=== PATIENT | male | born 1990 | race Caucasian/White ===

== ENCOUNTER 2018-06-26 20:15 | Emergency (ER) | payer SELFPAY ==
[2018-06-26 20:16] VITALS: BP 152/83; PULSE 82; RESP 16; TEMP 35.7; O2SAT 100; BMI 32.8
[2018-06-26 20:39] VITALS: BP 149/99; PULSE 85; RESP 18; O2SAT 98
--- NOTE | 2018-06-26 20:56 | CT_ITS ---
STUDY: CT BRAIN WITHOUT CONTRAST REASON FOR EXAM: Male, 28 years old. Headache and vertigo RADIATION DOSAGE (If Supplied By Facility): CTDIvol = ( 44.99 ) mGy, DLP = ( 812.98 ) mGycm TECHNIQUE: Transaxial CT imaging of the brain was performed without administration of intravenous contrast material. Individualized dose optimization techniques were used for this CT. COMPARISON: None. FINDINGS: Normal soft tissue structures. Normal calvarium. Normal size ventricles and extra-axial spaces for the patient's age. Normal white matter tracts of the cerebral hemispheres. Normal basal ganglia and thalami. Normal brainstem. Normal cerebellum. There is no intracranial hemorrhage. There are no findings of an acute ischemic infarction. Mucosal thickening in left maxillary sinus CT/Brain/Head without Contrast IMPRESSION: Normal unenhanced CT scan of the brain. Left maxillary sinusitis Electronically Signed: Parth Barragan MD at 21:45 EST , Service support ,
--- NOTE | 2018-06-26 20:56 | ED.RN ---
RN CALLED FOR EKG, NO OLD EKGS IN MUSE
[2018-06-26] MEDS: Acetaminophen 500 MG Tablet 1000 MG PO (21:03)
--- NOTE | 2018-06-26 21:33 | EKG12_ITS ---
Test Reason : NEAR SYNCOPE Blood Pressure : / mmHG Vent. Rate : 084 BPM Atrial Rate : 084 BPM P-R Int : 150 ms QRS Dur : 098 ms QT Int : 392 ms P-R-T Axes : 039 032 044 degrees QTc Int : 463 ms Normal sinus rhythm Normal ECG Confirmed by NIA OWEN, TYSON ([id number]), acquisition editor LIZZY BARRIENTOS ([id number] on 06/29/2018 9:07:40 AM Referred By: MI Confirmed By:TYSON KRAMER MD
--- NOTE | 2018-06-26 22:19 | ED.VISSUMM ---
- ER Visit Summary Date of Service: 06/26/18 Chief Complaint: Headache History of Present Illness: The patient is a 28 M presenting for evaluation secondary to headache. Patient reports that he has been up on labor and delivery with his is she is laboring their fourth child. He reports that he was down in the cafeteria and he had a relatively sudden onset of a bitemporal headache. States that this made him feel as if he was almost going to pass out. Patient endorses some nausea with it but denies any visual changes numbness or weakness. Denies any recent head injuries. Denies any fevers neck stiffness or skin rashes. He denies any personal or family history of aneurysm. He does not really have a history of having headaches in the past. Review of systems otherwise negative. Physical Examination: Vital signs: Within normal limits General: Well-nourished well-developed no acute distress Head: Normocephalic atraumatic, no temporal artery tenderness or vesicular rash noted. No sinus tenderness to percussion. Eyes: PERRLA, EOMI. Direct funduscopy shows no evidence of hemorrhage or papilledema. Neck: Supple, no lymphadenopathy, no JVD no meningismus. Negative Brudzinski, Kernig, jolt, and heel strike Cardiovascular: Heart regular rate and rhythm no murmurs Respiratory: Lung sounds clear to auscultation bilaterally no respiratory distress Abdomen: Soft, nontender Extremities: Nontender, no edema Skin: Normal color, no rash, no evidence of petechia Neuro: Alert and oriented ?4, cranial nerves II through XII intact, normal strength, sensation Test Results: CT brain negative Emergency Department Course and Treatment: Patient presented for evaluation secondary to headache. Given the relatively sudden onset of this, the fact that he does not have a history of headaches, and the fact that he felt as if he was going to potentially pass out a CT brain was obtained. This was obtained within approximately an hour and a half of the patient's onset of symptoms, so a negative CT carries a very high sensitivity and I do not believe that further imaging or lumbar puncture indicated to rule out subarachnoid hemorrhage. Patient was treated with Tylenol and had significant symptom attic improvement. I believe he can safely be discharged. He will follow-up with primary care Disposition: Discharge Impression: 1. Unspecified cephalgia This note was generated with [employer] dictation software. It may contain incorrect words, spelling, and punctuation that were not noted in review of the chart prior to signing ED Disposition - Plan for ED Patient: Disposition: Home or Assisted Living Chief Complaint: Headache Diagnosis: Headache Instructions: ED Headache Tension Referrals: [facility],Out of [Primary Care Provider] -
[2018-06-26 22:27] VITALS: BP 147/92; PULSE 67; RESP 18; O2SAT 97
--- NOTE | 2018-06-26 22:28 | ED.RN ---
pt given written and verbal discharge instructions. pt educated to monitor bp daily until follow up with pcp. pt to return to er for any new or worsened sx. pt verbalizes understanding and denies any further questions. pt dresses self and ambulates out of dept by self.
--- OUTSIDE RECORDS SUMMARY | 2018-08-13 00:32 | XMS RPT_ITS ---
:1990 Author Organization OH[facility] Care Team Providers Name Role Phone ZOILA SANTILLAN (PAC) Attending Unavailable MIRYAM GÓMEZ (PA) Referring Unavailable Steven Hernández Attending Unavailable AMANUEL MARTÍNEZ Primary Care Unavailable PROBLEMS PROBLEMS DATE TYPE CONDITION / CODE ATTENDING STATUS SOURCE 05/08/2018 Active Synovitis and NA Active [facility] tenosynovitis, Other Olivia unspecified / Repository M65.9(ICD-10) PROCEDURES PROCEDURES No Procedure Records FoundRESULTS RESULTS 12 LEAD ELECTROCARDIOGRAM Observed: 06/29/2018 Status: F Source: [place] 9:08 AM [facility] REPOSITORY [facility] Cardiovascular Services [address] [place] [address] 12 Lead EKG 06/26/182051 MR#: [id number] Acct: [id number] Name: ROXANA VIRGEN Rep #: [id number] : 1990 28 From: Rhys Richardson MD Attending Dr: Status: DEP ER Ordering Dr: Steven Hernández MD Date: 06/26/18 Location: ED Sex: M C Admitted: Test Reason : NEAR SYNCOPE Blood Pressure : / mmHG Vent. Rate : 084 BPM Atrial Rate : 084 BPM P-R Int : 150 ms QRS Dur : 098 ms QT Int : 392 ms P-R-T Axes : 039 032 044 degrees QTc Int : 463 ms Normal sinus rhythm Normal ECG Confirmed by RHYS RICHARDSON MD ([id number]), image editor LIZZY BARRIENTOS ([id number]) on 06/29/2018 9:07:40 AM Referred By: MI Confirmed By:RHYS RICHARDSON MD 06/29/18 09 Date Rhys Richardson MD CC: Steven Hernández; OUT OF TOWN DOCTOR Signed EMERGENCY DEPARTMENT Observed: 06/27/2018 Status: F Source: [place] SUMMARY 12:35 AM [facility] [place] REPOSITORY [facility] Medical Records Department [address] [place] [address] Emergency Department Summary 06/26/18 2219 MR#: [id number] Acct: [id number] Name: ROXANA VIRGEN Rep #: [id number] : 1990 28 From: Steven Hernández MD PCP: OUT OF TOWN DOCTOR Status: DEP ER - ER Visit Summary Date of Service: 06/26/18 Chief Complaint: Headache History of Present Illness: The patient is a 28 M presenting for evaluation secondary to headache. Patient reports that he has been up on labor and delivery with his is she is laboring their fourth child. He reports that he was down in the cafeteria and he had a relatively sudden onset of a bitemporal headache. States that this made him feel as if he was almost going to pass out. Patient endorses some nausea with it but denies any visual changes numbness or weakness. Denies any recent head injuries. Denies any fevers neck stiffness or skin rashes. He denies any personal or family history of aneurysm. He does not really have a history of having headaches in the past. Review of systems otherwise negative. Physical Examination: Vital signs: Within normal limits General: Well-nourished well-developed no acute distress Head: Normocephalic atraumatic, no temporal artery tenderness or vesicular rash noted. No sinus tenderness to percussion. Eyes: PERRLA, EOMI. Direct funduscopy shows no evidence of hemorrhage or papilledema. Neck: Supple, no lymphadenopathy, no JVD no meningismus. Negative Brudzinski, Kernig, jolt, and heel strike Cardiovascular: Heart regular rate and rhythm no murmurs Respiratory: Lung sounds clear to auscultation bilaterally no respiratory distress Abdomen: Soft, nontender Extremities: Nontender, no edema Skin: Normal color, no rash, no evidence of petechia Neuro: Alert and oriented 4, cranial nerves II through XII intact, normal strength, sensation Test Results: CT brain negative Emergency Department Course and Treatment: Patient presented for evaluation secondary to headache. Given the relatively sudden onset of this, the fact that he does not have a history of headaches, and the fact that he felt as if he was going to potentially pass out a CT brain was obtained. This was obtained within approximately an hour and a half of the patient's onset of symptoms, so a negative CT carries a very high sensitivity and I do not believe that further imaging or lumbar puncture indicated to rule out subarachnoid hemorrhage. Patient was treated with Tylenol and had significant symptom attic improvement. I believe he can safely be discharged. He will follow-up with primary care Disposition: Discharge Impression: 1. Unspecified cephalgia This note was generated with Intelligent InSites dictation software. It may contain incorrect words, spelling, and punctuation that were not noted in review of the chart prior to signing ED Disposition - Plan for ED Patient: Disposition: Home or Assisted Living Chief Complaint: Headache Diagnosis: Headache Instructions: ED Headache Tension Referrals: [facility] Doctor,Out of [Primary Care Provider] - What to do if you have Problems For any increased pain, shortness of breath, bleeding, nausea or vomiting, chest pain, or any unexpected problems, contact your Primary Care Provider. Call [facility] ([phone]) or report to the closest Emergency Room. Call 911 if necessary. 06/27/18 0035 <Electronically signed by Steven Hernández MD> Date Steven Hernández MD Cosigner Signature (If Indicated): Date CC: OUT OF TOWN DOCTOR BRAIN/HEAD WITHOUT Observed: 06/26/2018 Status: F Source: [place] 8:57 PM [facility] REPOSITORY [facility] Imaging Services [facility] [place] [address] Brain/Head without Contrast MR#: [id number] Acct: [id number] Name: ROXANA VIRGEN Rep #: [id number] : 1990 M 28 From: Parth Barragan MD PCP: OUT OF TOWN DOCTOR Status: REG ER Study: Brain/Head without Contrast Date of Exam: 06/26/18 Exam# [id number] Ordering Dr: Steven Hernández MD STUDY: CT BRAIN WITHOUT CONTRAST REASON FOR EXAM: Male, 28 years old. Headache and vertigo RADIATION DOSAGE (If Supplied By Facility): CTDIvol = ( 44.99 ) mGy, DLP = ( 812.98 ) mGycm TECHNIQUE: Transaxial CT imaging of the brain was performed without administration of intravenous contrast material. Individualized dose optimization techniques were used for this CT. COMPARISON: None. FINDINGS: Normal soft tissue structures. Normal calvarium. Normal size ventricles and extra-axial spaces for the patient's age. Normal white matter tracts of the cerebral hemispheres. Normal basal ganglia and thalami. Normal brainstem. Normal cerebellum. There is no intracranial hemorrhage. There are no findings of an acute ischemic infarction. Mucosal thickening in left maxillary sinus CT/Brain/Head without Contrast IMPRESSION: Normal unenhanced CT scan of the brain. Left maxillary sinusitis Electronically Signed: Parth Barragan MD at 21:45 EST , Service support , CC: Steven Hernández; OUT OF TOWN DOCTOR Weight Analyst: Signed PROGRESS Observed: 05/14/2018 Status: COMPLETED Source: [place] 2:01 PM [facility] REPOSITORY HNO ID: [id number] Author: Zoila Santillan (Pac) Service: (none) Author Type: Physician Returns Processor Type: Progress Notes Filed: 06/12/2018 1:22 PM Note Text: Roxana is here for her knee or follow-up. On last Monday he began to have pain and swelling to his left little finger. He did go to the emergency room. He denies any injury or skin openings. He states for whatever reason his finger started to swell up. She was diagnosed with tenosynovitis. All symptoms have completely resolved. He states at the time he couldn't bend his finger. His symptoms began to resolve on Monday. Patient was concerned because he has psoriasis and his cousin has rheumatoid arthritis. He did have a workup in the emergency room which was negative. Again he's been 100% improved. He has no other complaints. No past medical history on file. family history is not on file. Social History Marital status: Spouse name: Years of education: Number of children: Social History Main Topics Smoking status: Never Smoker Smokeless tobacco: Never Used Alcohol use: Yes 1.5 oz/week Cans of Beer (12oz): 1 per week Comment: social drinker Drug use: No REVIEW OF SYSTEMS: CONSTITUTIONAL: No fevers, chills, nightsweats, unintended weight loss HEENT: Denies frequent or severe heaches, nasal congestion/sinus symptoms, problematic allergy problems. EYES: No diplopia or blurry vision. CARDIOVASCULAR: No chest pain, dyspnea, palpitations, orthopnea, PND, ankle edema. PULM: No dyspnea, unexplained cough. GI: No dysphagia/odynophagia, problematic reflux, constipation, diarrhea, changes in stool habits, hematochezia, melena. : No new urinary complaints, including dysuria, gross hematuria or pyuria. NEURO: No new balance problems, peripheral weakness/paresthesias or numbness of concern. MUSC-SKEL: See history of present illness PSY: No concerns regarding depression, anxiety or panic. INTEGUMENTARY: No new skin changes (rash, new or changing mole, new growth) Physical exam: Is alert and oriented ?3 in no acute distress. He is 5 foot 7 and weighs 210 pounds. He has full range of motion of his left little finger. There is no swelling, there is no evidence of infection. Tendons are intact. He's able make a fist without difficulty. Neurovascular is intact throughout. Radiology: Negative Assessment: Resolved left little swelling and pain to this finger Plan: Just monitor at this point. Follow-up as needed. Zoila Santillan M.S. PA-C This note was partially generated using Dragon voice recognition system. MACIELOV Observed: 05/14/2018 Status: COMPLETED Source: [place] 10:00 AM [facility] REPOSITORY Office Visit (ORMDNA) ROXANA VIRGEN ([id number]) 1990 M Date Time Provider Department 05/14/18 10:00 AM ZOILA SANTILLAN ([facility]) ORCLEMENTINA During your visit today, we recorded the following information about you: Weight Height 95.3 kg 1.702 m Zoila Santillan M.S. PA-C 06/12/2018 1:22 PM Signed Roxana is here for her knee or follow-up. On last Monday he began to have pain and swelling to his left little finger. He did go to the emergency room. He denies any injury or skin openings. He states for whatever reason his finger started to swell up. She was diagnosed with tenosynovitis. All symptoms have completely resolved. He states at the time he couldn't bend his finger. His symptoms began to resolve on Monday. Patient was concerned because he has psoriasis and his cousin has rheumatoid arthritis. He did have a workup in the emergency room which was negative. Again he's been 100% improved. He has no other complaints. No past medical history on file. family history is not on file. Social History Marital status: Spouse name: Years of education: Number of children: Social History Main Topics Smoking status: Never Smoker Smokeless tobacco: Never Used Alcohol use: Yes 1.5 oz/week Cans of Beer (12oz): 1 per week Comment: social drinker Drug use: No REVIEW OF SYSTEMS: CONSTITUTIONAL: No fevers, chills, nightsweats, unintended weight loss HEENT: Denies frequent or severe heaches, nasal congestion/sinus symptoms, problematic allergy problems. EYES: No diplopia or blurry vision. CARDIOVASCULAR: No chest pain, dyspnea, palpitations, orthopnea, PND, ankle edema. PULM: No dyspnea, unexplained cough. GI: No dysphagia/odynophagia, problematic reflux, constipation, diarrhea, changes in stool habits, hematochezia, melena. : No new urinary complaints, including dysuria, gross hematuria or pyuria. NEURO: No new balance problems, peripheral weakness/paresthesias or numbness of concern. MUSC-SKEL: See history of present illness PSY: No concerns regarding depression, anxiety or panic. INTEGUMENTARY: No new skin changes (rash, new or changing mole, new growth) Physical exam: Is alert and oriented ?3 in no acute distress. He is 5 foot 7 and weighs 210 pounds. He has full range of motion of his left little finger. There is no swelling, there is no evidence of infection. Tendons are intact. He's able make a fist without difficulty. Neurovascular is intact throughout. Radiology: Negative Assessment: Resolved left little swelling and pain to this finger Plan: Just monitor at this point. Follow-up as needed. Zoila Santillan M.S. PA-C This note was partially generated using Intelligent InSites voice recognition system. Referring Provider: MIRYAM GÓMEZ) [[id number]] Allergies As of Date: 05/14/2018 (No Known Allergies) Date Reviewed: 05/14/2018 Reviewed by: Neena Skaggs Ma - Fully Assessed Reason for Visit: New Patient [172] Left Pinky Finger [Other] Primary Visit Diagnosis:Finger joint swelling, left [M25.442] Prescriptions as of 05/14/2018 Sig: CEPHALEXIN 500 MG CAPSULE Take 1 capsule by mouth four * PREDNISONE 20 MG TABLET 1 tid x 2 days, then 1 bid x * ACETAMINOPHEN 300 MG-CODEINE * Take 1-2 tablets by mouth corky* Problem List As Of Date: 05/14/2018 (None) Encounter Status:Closed by Merlyn SANTILLAN PA-C on 06/12/18 ED NOTE Observed: 05/08/2018 Status: COMPLETED Source: [place] 5:02 PM CLINIC OTHER CAMPUS REPOSITORY HNO ID: [id number] Author: Nina Waters) OLIVA Lawson Service: (none) Author Type: Registered Nurse Type: ED Notes Filed: 05/08/2018 5:02 PM Note Text: Discharge instructions reviewed, verbalized understanding. Patient discharged with all belongings. ED PROV NOTE Observed: 05/08/2018 Status: COMPLETED Source: [place] 3:24 PM CLIN[facility] OTHER CAMPUS REPOSITORY HNO ID: [id number] Author: Miryam Castro) Chandni Service: (none) Author Type: Physician Returns Processor Type: ED Provider Notes Filed: 05/10/2018 9:10 AM Note Text: ED Provider Note Patient Name: Roxana Virgen SERVICE DATE: 05/08/18 History Patient presents with: Edema: left hand 28-year-old male presents emergency Department with pain and swelling to the left little finger extending to the left hand beginning yesterday. Patient denies injury or trauma to the area. He states he is right-hand dominant and does not do repetitive work with the left hand. He states he was sitting at home when he developed an achy pain to the left little finger extending down to the MCP joint. He noticed the left him with a little more swollen today when he awoke. He states pain has increased throughout the day today. He states it hurts to touch the left little finger and he has pain when he flexes or extends the finger at the MCP and PIP joints. He denies paresthesias to the left hand. He denies fevers or chills. Past medical history significant only for psoriasis but states he has not been on any medications for this for at least a year and a half. He has not had any skin lesions for about that time as well. He denies history of psoriatic arthritis. Patient took ibuprofen 2 hours prior to arrival in the emergency department for pain and swelling. No past medical history on file. No past surgical history on file. No family history on file. Social History Social History Main Topics - Smoking status: Never Smoker - Smokeless tobacco: Never Used - Alcohol use 1.5 oz/week 1 Cans of Beer (12oz) per week Comment: social drinker - Drug use: No - Sexual activity: Not on file ALLERGIES No Known Allergies Review of Systems Constitutional: Negative. Negative for activity change, appetite change, chills, fatigue and fever. HENT: Negative. Eyes: Negative. Respiratory: Negative. Cardiovascular: Negative. Endocrine: Negative. Genitourinary: Negative. Musculoskeletal: Positive for arthralgias. Negative for joint swelling, myalgias and neck pain. Skin: Negative. Negative for color change, pallor, rash and wound. Allergic/Immunologic: Negative. Negative for immunocompromised state. Neurological: Negative. Negative for numbness. Hematological: Negative. Negative for adenopathy. Does not bruise/bleed easily. All other systems reviewed and are negative. Physical Exam BP 149/83 Pulse 83 Temp 98.4 Resp 18 Wt 210 lb (95.3kg) SpO2 99% Physical Exam Constitutional: Vital signs are normal. He appears well-developed and well-nourished. He is cooperative. Non-toxic appearance. He does not have a sickly appearance. He does not appear ill. No distress. Cardiovascular: Normal rate, regular rhythm and normal heart sounds. Exam reveals no gallop and no friction rub. No murmur heard. Pulses: Radial pulses are 2+ on the right side, and 2+ on the left side. Te refill brisk to all fingers of the left hand. Pulmonary/Chest: Effort normal and breath sounds normal. No respiratory distress. He has no decreased breath sounds. He has no wheezes. He has no rhonchi. He has no rales. He exhibits no tenderness. Musculoskeletal: Left wrist: Normal. Left hand: He exhibits tenderness and swelling. He exhibits normal range of motion, no bony tenderness, normal two-point discrimination, normal capillary refill, no deformity and no laceration. Normal sensation noted. Normal strength noted. Mild edema to the left hand. No erythema to the hand. there is no evidence of cellulitis. There is no skin temperature warmth appreciated. No pallor noted. There is no pain with palpation to the left wrist. He does have pain with palpation to the left little finger over the middle phalanx proximal phalanx and MCP joints. He has full ROM of the left little finger, but has pain with both passive and active flexion and extension at the MCP and PIP joints. Neurological: He is alert. He has normal strength. No sensory deficit. Sensation intact to left little finger to pain and soft touch Skin: Skin is warm, dry and intact. Capillary refill takes less than 2 seconds. No abrasion, no bruising, no ecchymosis, no laceration and no rash noted. He is not diaphoretic. No erythema. No pallor. No erythema or cellulitis. Nursing note and vitals reviewed. Diagnostic Testing Results for orders placed or performed during the hospital encounter of 05/08/18 COMP METABOLIC PANEL Result Value Ref Range Protein, Total 7.5 6.3 - 8.0 g/dL Albumin 4.8 3.9 - 4.9 g/dL Calcium 9.8 8.5 - 10.2 mg/dL Bilirubin, Total 0.4 0.2 - 1.3 mg/dL Alkaline Phosphatase 111 38 - 113 U/L AST 17 14 - 40 U/L Glucose 102 (H) 74 - 99 mg/dL BUN 14 9 - 24 mg/dL Creatinine 1.13 0.73 - 1.22 mg/dL Sodium 139 136 - 144 mmol/L Potassium 4.1 3.7 - 5.1 mmol/L Chloride 99 97 - 105 mmol/L CO2 27 22 - 30 mmol/L Anion Gap 13 9 - 18 mmol/L ALT 18 10 - 54 U/L eGFR- >60 eGFR-All Other Races >60 . CBC + DIFF Result Value Ref Range WBC 6.29 3.70 - 11.00 k/uL RBC 5.22 4.20 - 6.00 m/uL Hemoglobin 15.8 13.0 - 17.0 g/dL Hematocrit 46.9 39.0 - 51.0 % MCV 89.8 80.0 - 100.0 fL MCH 30.3 26.0 - 34.0 pG MCHC 33.7 30.5 - 36.0 g/dL RDW-CV 12.2 11.5 - 15.0 % Platelet Count 290 150 - 400 k/uL MPV 9.8 9.0 - 12.7 fL Neut% 57.5 % Abs Neut (ANC) 3.61 1.45 - 7.50 k/uL Lymph% 34.8 % Abs Lymph 2.19 1.00 - 4.00 k/uL Kerr% 5.7 % Abs Kerr 0.36 <0.87 k/uL Eosin% 1.7 % Abs Eosin 0.11 <0.46 k/uL Baso% 0.3 % Abs Baso <0.03 <0.11 k/uL C-REACTIVE PROTEIN (CRP) Result Value Ref Range CRP 0.1 <0.9 mg/dL SED RATE WESTERGREN Result Value Ref Range Sed Rate, Westergren 2 0 - 15 mm/hr XR HAND GENERAL 3V PA/LAT/OBL LT Final Result IMPRESSION: Negative Weight Analyst: ERNESTO Transcribe Date/Time: May 08 2018 2:28P Dictated by : MARC KIM MD This examination was interpreted and the report reviewed and electronically signed by: MARC KIM MD on May 08 2018 2:29PM EST Procedures ED Course / Clinical Impression Clinical Impressions as of May 08 1524 Tenosynovitis MDM / Disposition / Plan Patient is normotensive and afebrile and normal vital signs. There is no evidence of cellulitis or septic joint. I discussed concerns about possible tenosynovitis and labs and x-ray were ordered. CBC shows normal white blood cell count of 6.29 with a normal hemoglobin and hematocrit normal differential. CMP essentially normal with only slight elevation of glucose at 102 BUN and crit are normal sodium and potassium are normal. CRP is normal at 0.1 sedimentation rate was ordered but it is a send out and do not have results at this time. X-ray of the hand shows no acute abnormalities. Patient denied need for pain medication throughout his stay in the emergency department. I am concerned about a possible tenosynovitis due to lack of injury and pain with both passive and active range of motion to the left little finger. I discussed normal labs and x-ray with the patient and do not feel that he requires admission at this time, they will begin IV antibiotics Ancef 1 g IV given here and will start on Keflex by mouth on outpatient basis. I discussed the case in detail with Peri, physician surgical assistant certified for Dr. Chapa who agrees with this plan and will see the patient in her office for follow-up. Patient given contact information advised to call for follow-up appointment within 24 hours. He was advised return anytime for any new or worsening symptoms including increased pain, swelling, erythema, fever or worsening pain. Disposition The patient was discharged and given RX. Counseled patient regarding lab results, radiology results and suspected diagnosis. As well as the need for follow-up. Discharged home with verbal and written instructions. They were instructed to return as needed for persistent or worsening symptoms or any new concerns. Medication(s) prescribed include keflex. Condition at disposition is stable. SIGNATURE: RONNIE King (Pa) 05/10/18 0910 XR HAND 3V PA/LAT/OBL Observed: 05/08/2018 Status: F Source: [facility] 2:07 PM CLINIC OTHER CAMPUS REPOSITORY * * *Final Report* * * DATE OF EXAM: May 08 2018 2:07PM MDX [id number] - XR HAND 3V PA/LAT/OBL LT / PROCEDURE REASON: Bone pain, hand * * * * Physician Interpretation * * * * PROCEDURE: Left 5th finger INDICATION: Bone pain, hand .left 5th finger started hurting last night and started swelling this morning, no known injury TECHNIQUE: XR HAND 3V PA/LAT/OBL LT COMPARISON: None FINDINGS: No fractures or dislocations are seen. The bones, joint spaces and soft tissues are unremarkable. IMPRESSION: Negative Weight Analyst: PSCB Transcribe Date/Time: May 08 2018 2:28P Dictated by : MARC KIM MD This examination was interpreted and the report reviewed and electronically signed by: MARC KIM MD on May 08 2018 2:29PM EST [id number] CBC AND DIFFERENTIAL Collected: 05/08/2018 Status: F Source: [place] 2:02 PM CLINIC OTHER CAMPUS REPOSITORY TYPE CODE TESTS RESULT OUT OF REFERENCE UNITS RANGE LAB WBC 3.70-11.00 k/uL WBC 6.29 LAB RBC 4.20-6.00 m/uL RBC 5.22 LAB HGB 13.0-17.0 g/dL Hemoglobin 15.8 LAB HCT 39.0-51.0 % Hematocrit 46.9 LAB MCV 80.0-100.0 fL MCV 89.8 LAB MCH 26.0-34.0 pG MCH 30.3 LAB MCHC 30.5-36.0 g/dL MCHC 33.7 LAB RDWCV 11.5-15.0 % RDW-CV 12.2 LAB PLTCT 150-400 k/uL Platelet Count 290 LAB MPV 9.0-12.7 fL MPV 9.8 LAB ANEUT % Neut% 57.5 LAB AANEUT 1.45-7.50 k/uL Abs Neut 3.61 LAB ALYMP % Lymph% 34.8 LAB AALYMP 1.00-4.00 k/uL Abs Lymph 2.19 LAB AMONO % Kerr% 5.7 LAB AAMONO <0.87 k/uL Abs Kerr 0.36 LAB AEOS % Eosin% 1.7 LAB AAEOS <0.46 k/uL Abs Eosin 0.11 LAB ABASO % Baso% 0.3 LAB AABASO <0.11 k/uL Abs Baso <0.03 Performed By: #### CBCDIF, CMP, CRP #### [facility] [address] [facility] [phone] #### WSR #### [facility] [address] [place], [place] [address] COMP METABOLIC PANEL Collected: 05/08/2018 Status: F Source: [place] 2:02 PM CLINIC OTHER CAMPUS REPOSITORY TYPE CODE TESTS RESULT OUT OF REFERENCE UNITS RANGE LAB TP 6.3-8.0 g/dL Protein, Total 7.5 LAB ALB 3.9-4.9 g/dL Albumin 4.8 LAB CA 8.5-10.2 mg/dL Calcium, Total 9.8 LAB TBIL 0.2-1.3 mg/dL Bilirubin, Total 0.4 LAB ALKP 38-113 U/L Alkaline Phosphatase 111 LAB AST 14-40 U/L AST 17 LAB GLU 74-99 mg/dL Glucose High 102 Result Comment: The [place] [employer] (ADA) provides guidance for cutoff values for fasting glucose and random glucose. The ADA defines fasting as no caloric intake for at least 8 hours. Fas ting plasma glucose results between 100 to 125 mg/dL indicate increased risk for diabetes (prediabetes). Fasting plasma glucose results greater than or equal to 126 mg/dL meet the criteria for diagnosis of diabetes. In the absence of unequivocal hyperglycemia, results should be confirmed by repeat testing. In a patient with classic symptoms of hyperglycemia or hyperglycemic crisis, random plasma glucose results greater than or equal to 200 mg/dL meet the criteria for diagnosis of diabetes. Reference: Standards of Medical Care in Diabetes 2016, [place] Diabetes Association. Diabetes Care. 2016.39(Suppl 1). LAB BUN 9-24 mg/dL BUN 14 LAB CRET 0.73-1.22 mg/dL Creatinine 1.13 LAB NA 136-144 mmol/L Sodium 139 LAB K 3.7-5.1 mmol/L Potassium 4.1 LAB CL 97-105 mmol/L Chloride 99 LAB CO2 22-30 mmol/L CO2 27 LAB AGAP 9-18 mmol/L Anion Gap 13 LAB ALT 10-54 U/L ALT 18 LAB GFRAA eGFR- Amer. >60 LAB GFRNAA . eGFR-All Other Races >60 Result Comment: eGFR (Estimated GFR) Units of measure: mL/min/1.73 meters squared eGFR is derived from the reexpressed MDRD Study equation using the following parameters: serum creatinine, age, gender and race. The creatinine assay has been calibrated to be traceable to IDMS. An eGFR <60 mL/min/1.73m2 for >3 months is consistent with chronic kidney disease. Refer to KDOQI guidelines for clinical interpretation. In patients with unstable renal function, e.g. those with acute kidney injury, the eGFR may not accurately reflect actual GFR. Performed By: #### CBCDIF, CMP, CRP #### [facility] [address] [place], [place] [address] #### WSR #### [facility] [address] [phone] C-REACTIVE PROTEIN Collected: 05/08/2018 Status: F Source: [place] 2:02 PM [facility] REPOSITORY TYPE CODE TESTS RESULT OUT OF REFERENCE UNITS RANGE LAB CRP <0.9 mg/dL C-Reactive 0.1 Protein Performed By: #### CBCDIF, CMP, CRP #### [facility] [address] [place], [place] [address] #### WSR #### [facility] [address] [phone] SED RATE WESTERGREN Collected: 05/08/2018 Status: F Source: [place] 2:02 PM [facility] REPOSITORY TYPE CODE TESTS RESULT OUT OF REFERENCE UNITS RANGE LAB WSR 0-15 mm/hr Sed Rate Westergren 2 Performed By: #### CBCDIF, CMP, CRP #### [facility] [address] [place] [address] #### WSR #### [facility] [address] [phone] ED NOTE Observed: 05/08/2018 Status: COMPLETED Source: [place] 1:30 PM [facility] REPOSITORY HNO ID: [id number] Author: Leyad FelipeRn) OLIVA Macias Service: (none) Author Type: Registered Nurse Type: ED Notes Filed: 05/08/2018 1:30 PM Note Text: Patient presents to the ED with left hand swelling that started last night with no known injury. ALLERGIES ALLERGIES DATE TYPE / CODE NAME / CODE REACTION SEVERITY SOURCE 06/26/2018 Drug No Known Unknown [facility] Allergy/416 Allergies/[id number] Hospital [id number](SNOM 0388(RXNORM) Repository ED CT) Drug NO KNOWN [facility] Class/85674 ALLERGIES Other [place] 1003(SNOMED Repository CT) ENCOUNTERS ENCOUNTERS ADMIT/DISCHARGE ACCOUNT ADMITTING ENCOUNTER LOCATION SOURCE NUMBER CLASS 06/26/2018/06/26/20 [id number] Emergency [address] ing:ED Repository 05/14/2018/06/12/20 [id number] Ambulatory [address] Main [place] Repository 05/08/2018/05/08/20 [id number] Emergency [address] Other [place] Repository PAYERS PAYERS ENCOUNTER GUARANTOR PAYER SUBSCRIBER SOURCE 06/26/2018 [id number] Insurance:SELF PAY [facility] [place] MARTINEZ Number: Effective Repository [id number]: [phone] Date:2018-06-26 [phone] ()
== END 2018-06-26 22:30 | disposition home or self-care (01) ==
PROVIDERS: Emergency Provider Emergency Medicine
DX: R51 Headache (principal)
CPT/HCPCS: 70450; 93005; 99283